=== PATIENT | female | born 2000 | race Caucasian/White ===

== ENCOUNTER 2019-10-06 12:49 | Outpatient (CLI) | payer BC | END 2019-10-06 23:59 | disposition home or self-care (01) | LOC: RAD 12:49 | PROVIDERS: ATTEND Nurse Practitioner | DX: S82.65XA Nondisplaced fracture of lateral malleolus of left fibula, initial encounter for closed fracture (principal); S82.832A Other fracture of upper and lower end of left fibula, initial encounter for closed fracture; X58.XXXA Exposure to other specified factors, initial encounter; Y93.89 Activity, other specified; Y92.89 Other specified places as the place of occurrence of the external cause; Y99.8 Other external cause status ==